=== PATIENT | female | born 1980 | race Caucasian/White ===

== ENCOUNTER → 2017-01-23 | Outpatient (REF) | payer OTHER | LOC: M LAB REF 12:29 | PROVIDERS: ATTEND Nurse Practitioner Adult Health | DX: E03.9 Hypothyroidism, unspecified (principal) ==

== ENCOUNTER → 2017-03-11 | Outpatient (REF) | payer OTHER ==
[2017-03-11 13:57] LABS: FREE T4 1.08 NG/DL (0.76-1.46)
== END ==
LOC: M LABDRAW1 11:30
PROVIDERS: ATTEND Physician Assistant Medical
DX: E03.9 Hypothyroidism, unspecified (principal)

== ENCOUNTER → 2017-06-09 | Outpatient (REF) | payer OTHER ==
[2017-06-09 12:05] LABS: FREE T4 0.99 NG/DL (0.76-1.46)
[2017-06-10 10:56] LABS: THYROID PEROXIDASE ANTIBODY 1016.2 U/ML (<60.0)
== END ==
LOC: M LABDRAW1 11:29
PROVIDERS: ATTEND Internal Medicine Endocrinology, Diabetes & Metabolism
DX: E03.9 Hypothyroidism, unspecified (principal)

== ENCOUNTER → 2017-08-13 | Outpatient (REF) | payer OTHER | LOC: M SFHCWAGY 12:46 | PROVIDERS: ATTEND Nurse Practitioner Women's Health | DX: N93.0 Postcoital and contact bleeding (principal) ==

== ENCOUNTER → 2017-09-09 | Outpatient (REF) | payer OTHER ==
[2017-09-09 16:17] LABS: FREE T4 1.02 NG/DL (0.76-1.46)
== END ==
LOC: M LABDRAW1 13:32
PROVIDERS: ATTEND Nurse Practitioner Family
DX: E03.9 Hypothyroidism, unspecified (principal); E66.09 Other obesity due to excess calories

== ENCOUNTER → 2017-09-17 | Outpatient (CLI) | payer OTHER ==
--- NOTE | 2017-09-17 14:10 | REP ---
PELVIC ULTRASOUND: Real-time sonographic evaluation of the pelvis is performed utilizing transabdominal and endovaginal technique. The patient has had a prior hysterectomy. The ovaries appear normal in size and echotexture, right ovary measuring 2.8 x 1.8 x 4.1 cm and the left ovary 4.0 x 1.5 x 2.7 cm. Normal size follicles are seen in each ovary with no evidence of adnexal mass or free fluid. Blood flow is seen in each ovary with duplex Doppler evaluation, RI right ovary 0.40 and left ovary 0.47. Urinary bladder measures 13.0 x 10.8 x 8.2 cm. IMPRESSION: Normal appearing ovaries. Status post hysterectomy. No mass or free fluid.
--- NOTE | 2017-09-17 14:15 | REPMRS ---
Patient History The patient states she had a clinical breast exam in 08/09 Patient is nulliparous. Family history of breast cancer in maternal aunt at age 40, breast cancer in maternal aunt at age 50, and breast cancer in maternal grandmother. Digital Woman Screen Mammo: September 17, 2017 - Exam #: [id number] Bilateral CC and MLO view(s) were taken. Technologist: Kenna Kirby, Technologist FINDINGS: The breast tissue is heterogeneously dense. This may lower the sensitivity of mammography. There is a moderate amount of heterogeneously dense fibroglandular tissue which is fairly symmetric. There is no interval development of dominant mass, architectural distortion, or clustered microcalcification typical of malignancy. There has been no change in the appearance of the mammogram from the prior studies. ASSESSMENT: BI-RADS/ACR category 1 mammogram. Negative. Recommendation Breast MRI of both breasts in 6 months. Annual screening Breast MRI scanniing is recommended for patient's whose lifetime risk assessment is over 20%. Routine screening mammogram of both breasts in 1 year (for women over age 40). This patient's Lifetime Breast Cancer RIsk is estimated at 25 %. This mammogram was interpreted with the aid of an FDA-approved computer-aided dectection system. Electronically Signed By: Anderson Shaikh MD 09/17/17 0610
== END ==
LOC: M WHC 12:52
PROVIDERS: ATTEND Nurse Practitioner Women's Health
DX: Z12.31 Encounter for screening mammogram for malignant neoplasm of breast (principal); R10.2 Pelvic and perineal pain; Z80.41 Family history of malignant neoplasm of ovary; Z84.81 Family history of carrier of genetic disease; Z80.3 Family history of malignant neoplasm of breast
CPT/HCPCS: 76830; 76856; G0202

== ENCOUNTER → 2017-12-02 | Outpatient (CLI) | payer OTHER ==
[2017-12-02 09:37] LABS: BASO % 0.8 % (0.0-1.0); EOS # 0.1 10^3/uL (0.0-0.50); EOS % 2.6 % (0.0-3.0); HEMATOCRIT 39.2 % (36.0-47.0); HEMOGLOBIN 13.3 g/dl (12.0-16.0); IMMATURE GRANULOCYTE % 0.4 % (0-0); LYMPH # 1.3 10^3/uL (1.5-4.5); LYMPH % 26.1 % (24.0-44.0); MEAN CORPUSCULAR HEMOGLOBIN 33.6 pg (27.0-33.0); MEAN CORPUSCULAR HGB CONC 33.9 g/dl (32.0-36.5); MONO # 0.4 10^3/uL (0.0-0.8); MONO % 7.4 % (0.0-5.0); NEUTROPHILS # 3.1 10^3/uL (1.8-7.7); NEUTROPHILS % 62.7 % (36.0-66.0); PLATELET COUNT, AUTOMATED 329 10^3/uL (150-450); RED BLOOD COUNT 3.96 10^6/uL (4.00-5.40); RED CELL DISTRIBUTION WIDTH 12.4 % (11.5-14.5)
[2017-12-02 10:02] LABS: ALBUMIN 3.8 GM/DL (3.2-5.2); ALBUMIN/GLOBULIN RATIO 1.09 (1.00-1.93); ALKALINE PHOSPHATASE 62 U/L (45-117); ALT/SGPT 38 U/L (12-78); ANION GAP 8 MEQ/L (8-16); AST/SGOT 20 U/L (7-37); BILIRUBIN,TOTAL 0.5 MG/DL (0.2-1.0); BLOOD UREA NITROGEN 28 MG/DL (7-18); CALCIUM LEVEL 8.2 MG/DL (8.5-10.1); CARBON DIOXIDE LEVEL 27 MEQ/L (21-32); CHLORIDE LEVEL 108 MEQ/L (98-107); CHOLESTEROL LEVEL 209 MG/DL (<200); CREATININE FOR GFR 1.06 MG/DL (0.55-1.02); FREE T3 2.4 PG/ML (2.2-4.0); FREE T4 1.16 NG/DL (0.76-1.46); GLOMERULAR FILTRATION RATE > 60.0 (>60); GLUCOSE, FASTING 86 MG/DL (70-105); HDL CHOLESTEROL 54 MG/DL (>40); IMMUNOGLOBULIN G 1160 MG/DL (681-1648); NON-HDL-C 155 MG/DL; POTASSIUM SERUM 4.1 MEQ/L (3.5-5.1); RHEUMATOID FACTOR QUANT < 10.0 IU/ML (0-15.0); SODIUM LEVEL 143 MEQ/L (136-145); TOTAL PROTEIN 7.3 GM/DL (6.4-8.2); TRIGLYCERIDES LEVEL 65 MG/DL (<150)
[2017-12-02 11:24] LABS: THYROID PEROXIDASE ANTIBODY 1007.6 U/ML (<60.0); TOTAL 25(OH) VITAMIN D 32.5 NG/ML (30.0-100.0)
[2017-12-02 11:26] LABS: THYROGLOBULIN ANTIBODY > 500.0 U/ML (<60.0)
[2017-12-09 14:12] LABS: ANTINUCLEAR ANTIBODIES DIRECT Negative (Negative); ARSENIC BLOOD 3 ug/L (2-23); GLUTATHIONE QT 273 ug/mL (176-323); LEAD BLOOD None Detected ug/dL (0-19); Lyme Disease IgG/IgM Antibodie <0.91 ISR (0.00-0.90); Lyme Disease IgM Ab Quantitati <0.80 index (0.00-0.79); MERCURY BLOOD None Detected ug/L (0.0-14.9); T3 REVERSE 18.8 ng/dL (9.2-24.1); TISSUE TRANSGLUTAMINASE IgA <2 U/mL (0-3); UNITSIGA FOR GLIADIN IGA 4 units (0-19); UNITSIGG FOR GLIADIN IGG 7 units (0-19)
[2017-12-09 14:12] LABS: ALUMINUM LEVEL 5 ug/L (0-9)
== END ==
LOC: M LAB 08:39
DX: F41.1 Generalized anxiety disorder (principal); E03.9 Hypothyroidism, unspecified

== ENCOUNTER → 2018-05-10 | Outpatient (CLI) | payer OTHER ==
[~2018-05-10] MED LIST: PROHANCE 279.3MG/ML 15ML VIAL (A9576) As Ordered
== END ==
LOC: M RAD 10:21
DX: R92.2 Inconclusive mammogram (principal); Z84.81 Family history of carrier of genetic disease
CPT/HCPCS: A9576

== ENCOUNTER → 2018-08-25 | Outpatient (CLI) | payer OTHER ==
[2018-08-25 17:19] LABS: EOS # 0.2 10^3/uL (0.0-0.50); EOS % 4.6 % (0.0-3.0); HEMATOCRIT 41.3 % (36.0-47.0); IMMATURE GRANULOCYTE % 0.3 % (0-3.0); LYMPH # 1.3 10^3/uL (1.5-4.5); MEAN CORPUSCULAR HEMOGLOBIN 34.7 pg (27.0-33.0); MEAN CORPUSCULAR HGB CONC 33.9 g/dl (32.0-36.5); MEAN CORPUSCULAR VOLUME 102.2 fl (80.0-96.0); MONO # 0.3 10^3/uL (0.0-0.8); MONO % 8.4 % (0.0-5.0); NEUTROPHILS % 51.7 % (36.0-66.0); PLATELET COUNT, AUTOMATED 328 10^3/uL (150-450); RED BLOOD COUNT 4.04 10^6/uL (4.00-5.40); WHITE BLOOD COUNT 3.9 10^3/uL (4.0-10.0)
[2018-08-25 17:51] LABS: ALBUMIN 3.5 GM/DL (3.2-5.2); ALBUMIN/GLOBULIN RATIO 1.03 (1.00-1.93); ALKALINE PHOSPHATASE 52 U/L (45-117); ALT/SGPT 32 U/L (12-78); AMYLASE 40 U/L (25-115); ANION GAP 8 MEQ/L (8-16); AST/SGOT 19 U/L (7-37); BILIRUBIN,TOTAL 0.5 MG/DL (0.2-1.0); BLOOD UREA NITROGEN 12 MG/DL (7-18); CALCIUM LEVEL 8.3 MG/DL (8.5-10.1); CARBON DIOXIDE LEVEL 25 MEQ/L (21-32); CHLORIDE LEVEL 109 MEQ/L (98-107); CREATININE FOR GFR 0.95 MG/DL (0.55-1.30); GLOMERULAR FILTRATION RATE > 60.0 (>60); GLUCOSE, FASTING 93 MG/DL (70-100); LIPASE 90 U/L (73-393); SODIUM LEVEL 142 MEQ/L (136-145); TOTAL PROTEIN 6.9 GM/DL (6.4-8.2)
== END ==
LOC: M WUC 11:15
DX: A09 Infectious gastroenteritis and colitis, unspecified (principal)
CPT/HCPCS: 82150

== ENCOUNTER → 2018-08-25 | Outpatient (REF) | payer OTHER, BC | LOC: M LAB REF 16:57 | DX: A09 Infectious gastroenteritis and colitis, unspecified (principal) ==

== ENCOUNTER → 2018-10-19 | Outpatient (REF) | payer OTHER, BC ==
[2018-10-19 19:01] LABS: AMYLASE 44 U/L (25-115)
[2018-10-19 19:01] LABS: LIPASE 108 U/L (73-393)
[2018-10-19 19:09] LABS: CONTROL LINE HPYORI INT CTR LINE PRESENT; H PYLORI QUALITATIVE IgG DETECTED (NEGATIVE)
== END ==
LOC: M LAB REF 18:29
DX: R10.13 Epigastric pain (principal)

== ENCOUNTER → 2018-12-08 | Outpatient (CLI) | payer OTHER, BC ==
--- NOTE | 2018-12-08 16:32 | REPMRS ---
Patient History The patient states she had a clinical breast exam in 12/11 Family history of breast cancer in maternal grandmother, breast cancer at age 40 in maternal aunt, breast cancer at age 50 in maternal aunt. Digital Woman Screen Mammo: December 08, 2018 - Exam #: [id number] Bilateral CC and MLO view(s) were taken. Technologist: Kenna Kirby, Technologist Prior study comparison: September 17, 2017, digital woman screen mammo performed at [facility]. January 26, 2015, digital mammo diagnostic bilateral, performed at [facility]. FINDINGS: The breast tissue is heterogeneously dense. This may lower the sensitivity of mammography. There is a moderate amount of heterogeneously dense fibroglandular tissue which is fairly symmetric. There is no interval development of dominant mass, architectural distortion, or clustered microcalcification typical of malignancy. There has been no change in the appearance of the mammogram from the prior studies. 3-D tomosynthesis shows no additional findings. Assessment: BI-RADS/ACR category 1 mammogram. Negative. Recommendation Breast MRI of both breasts in 6 months. Routine screening mammogram of both breasts in 1 year (for women over age 40). This patient's Lifetime Breast Cancer RIsk is estimated at 24.6 %. Annual screening Breast MRI scanniing is recommended for patient's whose lifetime risk assessment is over 20%. This mammogram was interpreted with the aid of an FDA-approved computer-aided dectection system. Electronically Signed By: Anderson Shaikh MD 12/08/18 [id number]
== END ==
LOC: M WHC 13:44
PROVIDERS: ATTEND Nurse Practitioner Women's Health
DX: Z12.31 Encounter for screening mammogram for malignant neoplasm of breast (principal); Z80.3 Family history of malignant neoplasm of breast

== ENCOUNTER 2018-12-22 11:26 | Emergency (ER) | payer OTHER, BC ==
[~2018-12-22] VITALS: Ht 165.1 cm; Wt 80.0 kg
[2018-12-22 11:27] VITALS: BP 117/70
[2018-12-22] MEDS ORDERED: TEMA7.5C (11:33)
[2018-12-22] MEDS ORDERED: VALA1TAB2 (11:33)
[2018-12-22] MEDS ORDERED: CETI10TA (11:33)
[2018-12-22] MEDS ORDERED: TOPI50TA9 (11:33)
[2018-12-22] MEDS ORDERED: ESOM40CA35 (11:33)
[2018-12-22] MEDS ORDERED: LEVO100T5 (11:33)
[2018-12-22] MEDS ORDERED: DULO1CAP3 (11:33)
[2018-12-22] MEDS ORDERED: NS 1,000 ML IV ONE (12:00)
[2018-12-22] MEDS ORDERED: KETOROLAC 30 MG/ML VIAL (J1885) IV ONE (12:00)
[2018-12-22] MEDS ORDERED: ONDANSETRON 4MG/2ML VIAL (J2405) IV ONE (12:00)
[2018-12-22 12:07] LABS: BASO % 0.7 % (0.0-1.0); EOS # 0.2 10^3/uL (0.0-0.50); EOS % 3.6 % (0.0-3.0); HEMATOCRIT 41.9 % (36.0-47.0); HEMOGLOBIN 14.5 g/dl (12.0-15.5); LYMPH # 1.3 10^3/uL (1.5-4.5); LYMPH % 28.7 % (24.0-44.0); MEAN CORPUSCULAR HEMOGLOBIN 34.5 pg (27.0-33.0); MEAN CORPUSCULAR HGB CONC 34.6 g/dl (32.0-36.5); MEAN CORPUSCULAR VOLUME 99.8 fl (80.0-96.0); MONO # 0.4 10^3/uL (0.0-0.8); MONO % 8.9 % (0.0-5.0); NEUTROPHILS # 2.5 10^3/uL (1.8-7.7); NEUTROPHILS % 57.9 % (36.0-66.0); PLATELET COUNT, AUTOMATED 308 10^3/uL (150-450); WHITE BLOOD COUNT 4.4 10^3/uL (4.0-10.0)
[2018-12-22 12:30] LABS: ALBUMIN 3.8 GM/DL (3.2-5.2); ALT/SGPT 25 U/L (12-78); AMYLASE 38 U/L (25-115); BILIRUBIN,DIRECT 0.2 MG/DL (0.0-0.2); BILIRUBIN,TOTAL 0.6 MG/DL (0.2-1.0); BLOOD UREA NITROGEN 15 MG/DL (7-18); CALCIUM LEVEL 8.2 MG/DL (8.5-10.1); CARBON DIOXIDE LEVEL 22 MEQ/L (21-32); CHLORIDE LEVEL 109 MEQ/L (98-107); CREATININE FOR GFR 0.94 MG/DL (0.55-1.30); GLOMERULAR FILTRATION RATE > 60.0 (>60); GLUCOSE, FASTING 98 MG/DL (70-100); LIPASE 68 U/L (73-393); POTASSIUM SERUM 3.8 MEQ/L (3.5-5.1); SODIUM LEVEL 139 MEQ/L (136-145)
[2018-12-22] MEDS ORDERED: ISOVUE-370 76% 100ML VIAL (Q9967) As Ordered ONE (12:38)
[2018-12-22] MEDS ORDERED: MACR100C43 PO (13:12)
--- NOTE | 2018-12-22 13:12 | REP ---
Clinical: Acute right lower quadrant pain. Technique: Axial contrast enhanced images from the lung bases to the pubic symphysis with coronal and sagittal re-formations using 100 ml Isovue 370 intravenous contrast material. Findings: Irregular rim-enhancing focus in the right adnexa with surrounding fluid (axial images 95-112) most compatible with a ruptured ovarian cyst and likely related to the patient's symptoms. The patient is noted to be status post hysterectomy. The liver, spleen, pancreas, gallbladder, bilateral adrenal glands and kidneys are normal. The enteric system demonstrates moderate fecal stasis without obstruction or acute inflammatory process. Normal terminal ileum and appendix are identified in the right lower quadrant. Pelvis again demonstrates normal bladder with evidence of prior hysterectomy and suspected ruptured right ovarian cyst. No free air. No adenopathy. Abdominal aorta and vasculature normal. Musculoskeletal structures are intact. Lung bases are clear. Impression: 1. Right lower quadrant pain likely related to ruptured ovarian cyst as described above. 2. Normal appendix. 3. No further acute abdominopelvic pathology appreciated. Electronically Signed by Puneet Shine MD 12/22/2018 01:04 P
== END 2018-12-22 13:29 | disposition home or self-care (01) ==
LOC: M ED 11:26
DX: N83.201 Unspecified ovarian cyst, right side (principal); N30.00 Acute cystitis without hematuria; R11.0 Nausea; E06.3 Autoimmune thyroiditis; F41.9 Anxiety disorder, unspecified; F32.9 Major depressive disorder, single episode, unspecified; Z86.19 Personal history of other infectious and parasitic diseases; Z87.891 Personal history of nicotine dependence; Z79.899 Other long term (current) drug therapy
CPT/HCPCS: 36415; 74177; 80048; 80076; 81001; 82150; 83690; 85025; 96374; 96375; 99284; J1885; J2405; Q9967

== ENCOUNTER → 2019-01-21 | Outpatient (CLI) | payer OTHER, BC ==
[~2019-01-21] MED LIST changes: +CETI10TA; +DULO1CAP3; +ESOM40CA35; +LEVO100T5; +MACR100C43 PO; -PROHANCE 279.3MG/ML 15ML VIAL (A9576) As Ordered; +TEMA7.5C; +TOPI50TA9; +VALA1TAB2
--- NOTE | 2019-01-21 09:42 | REP ---
Clinical: Epigastric abdominal pain. Technique: Barrera scale ultrasound using curved array transducer. Findings: The liver, spleen and pancreas are normal in contour, size, and echogenicity without focal hepatic, splenic or pancreatic lesions identified. Spleen measures 8.1 x 4.1 x 8.8 cm. The gallbladder is normal without gallstones, wall thickening or pericholecystic fluid. No biliary ductal dilatation is appreciated, and the common bile duct measures 4.0 mm diameter. The bilateral kidneys are normal in reniform shape and echogenicity without hydronephrosis. Right kidney measures 10.3 x 5.7 x 4.4 cm. Left kidney measures 10.3 x 4.7 x 7.1 cm. Abdominal aorta appears normal and measures 1.8 cm maximal diameter. No ascites. Impression: Normal complete abdominal ultrasound. Electronically Signed by Puneet Shine MD 01/21/2019 09:34 A
== END ==
LOC: M RAD 08:23
PROVIDERS: ATTEND Internal Medicine Gastroenterology
DX: R10.13 Epigastric pain (principal)

== ENCOUNTER → 2019-02-01 | Outpatient (CLI) | payer OTHER, BC ==
[~2019-02-01] MED LIST changes: -CETI10TA; +CETI10TA PO; -DULO1CAP3; +DULO1CAP3 PO; -ESOM40CA35; +ESOM40CA35 PO; -LEVO100T5; +LEVO100T5 PO; -TEMA7.5C; +TEMA7.5C PO; -TOPI50TA9; +TOPI50TA9 PO; -VALA1TAB2; +VALA1TAB2 PO
--- NOTE | 2019-02-01 14:54 | REP ---
RIGHT KNEE, FIVE VIEWS: HISTORY: Anterior pain. There is no acute fracture or dislocation. The joint spaces are normal in appearance. IMPRESSION: There is no acute fracture or dislocation. Electronically Signed by Van Hawthorne MD 02/01/2019 02:57 P
== END ==
LOC: M WUC 13:47
PROVIDERS: ATTEND Physician Assistant
DX: M22.2X1 Patellofemoral disorders, right knee (principal)

== ENCOUNTER → 2019-02-14 | Outpatient (CLI) | payer OTHER, BC ==
--- NOTE | 2019-02-14 10:14 | REP ---
Pelvic sonography: History: Ovarian cyst. Comparison CT study December 22 2018. Findings: The uterus is surgically absent. Transabdominal and transvaginal scanning demonstrates smooth bladder reed. There is a 1.6 cm involuting follicle cyst in the left ovary. Left ovarian dimensions are 3.9 x 2.0 x 3.7 cm. Right ovary has a normal appearance with dimensions of 2.1 x 1.3 x 3.3 cm. Doppler flow is normal in both ovaries. Resistive indices are measured at 0.48 on the right and 0.43 on the left. Impression: Normal pelvic sonography status post hysterectomy. No significant ovarian cyst seen on either side. No free fluid. Electronically Signed by Baldo Shaikh MD 02/14/2019 10:06 A
== END ==
LOC: M WHC 09:01
PROVIDERS: ATTEND Nurse Practitioner Women's Health
DX: Z87.42 Personal history of other diseases of the female genital tract (principal); Z90.79 Acquired absence of other genital organ(s)

== ENCOUNTER 2019-02-18 13:05 | Day surgery (SDC) | payer OTHER, BC ==
[~2019-02-18] VITALS: Ht 165.1 cm; Wt 78.9 kg
[~2019-02-18 13:05] MED LIST changes: +NS 1,000 ML IV ONE
[2019-02-18] MEDS ORDERED: PROPOFOL 200 MG/20 ML VIAL As Ordered ONE (13:49)
[2019-02-18] MEDS ORDERED: LIDOCAINE 2% INJ 100 MG/5 ML SDV (FOR ANES.) As Ordered ONE (13:49)
[2019-02-18] MEDS ORDERED: fentaNYL 100 MCG/2 ML INJECTION (J3010) As Ordered ONE (13:51)
--- NOTE | 2019-02-18 14:58 | ROOR ---
Patient Name: Ryan Douglas Procedure Date: 02/18/2019 2:13 PM Date of : 1980 Age: 38 Room: [facility] Gender: Female Note Status: Finalized Procedure: Upper GI endoscopy Indications: Epigastric abdominal pain, Heartburn, Suspected gastro-esophageal reflux disease Providers: Sonny Queen MD Referring MD: Aditi Coon NP Requesting Provider: Medicines: Monitored Anesthesia Care Complications: No immediate complications. Procedure: Pre-Anesthesia Assessment: - Prior to the procedure, a History and Physical was performed, and patient medications and allergies were reviewed. The patient is competent. The risks and benefits of the procedure and the sedation options and risks were discussed with the patient. All questions were answered and informed consent was obtained. Patient identification and proposed procedure were verified by the physician, the nurse and the anesthesiologist in the procedure room. Mental Status Examination: alert and oriented. Airway Examination: normal oropharyngeal airway and neck mobility. Respiratory Examination: clear to auscultation. CV Examination: normal. Prophylactic Antibiotics: The patient does not require prophylactic antibiotics. Prior Anticoagulants: The patient has taken no previous anticoagulant or antiplatelet agents. ASA Grade Assessment: II - A patient with mild systemic disease. After reviewing the risks and benefits, the patient was deemed in satisfactory condition to undergo the procedure. The anesthesia plan was to use monitored anesthesia care (MAC). Immediately prior to administration of medications, the patient was re-assessed for adequacy to receive sedatives. The heart rate, respiratory rate, oxygen saturations, blood pressure, adequacy of pulmonary ventilation, and response to care were monitored throughout the procedure. The physical status of the patient was re-assessed after the procedure. The Endoscope was introduced through the mouth, and advanced to the second part of duodenum. The upper GI endoscopy was accomplished without difficulty. The patient tolerated the procedure well. Findings: The examined esophagus was normal. The Z-line was regular and was found 41 cm from the incisors. Diffuse mild inflammation characterized by erythema and granularity was found in the gastric body and in the gastric antrum. Biopsies were taken with a cold forceps for Helicobacter pylori testing. Verification of patient identification for the specimen was done by the physician and nurse using the patient's name, date and medical record number. Estimated blood loss was minimal. The duodenal bulb and second portion of the duodenum were normal. Biopsies for histology were taken with a cold forceps for evaluation of celiac disease. Impression: - Normal esophagus. - Z-line regular, 41 cm from the incisors. - Gastritis. Biopsied. - Normal duodenal bulb and second portion of the duodenum. Biopsied. Recommendation: - Patient has a contact number available for emergencies. The signs and symptoms of potential delayed complications were discussed with the patient. Return to normal activities tomorrow. Written discharge instructions were provided to the patient. - Resume previous diet. - Follow an antireflux regimen. - Await pathology results. - Based on the biopsy results you will receive a phone call from GI clinic in 2-3 weeks to review the pathology results AND/OR your results will be faxed to your Primary care physician. - Return to primary care physician. Sonny Queen MD Sonny Queen MD 02/18/2019 2:58:25 PM Electronically signed by Sonny Queen MD Number of Addenda: 0 Note Initiated On: 02/18/2019 2:13 PM Estimated Blood Loss: Estimated blood loss was minimal.
[2019-02-18 15:14] VITALS: BP 131/76
== END 2019-02-18 15:17 | disposition home or self-care (01) ==
LOC: M OPP 13:05
PROVIDERS: ATTEND Internal Medicine Gastroenterology
DX: K29.70 Gastritis, unspecified, without bleeding (principal); R10.13 Epigastric pain; R12 Heartburn
CPT/HCPCS: 43239; 88305; J3010

== ENCOUNTER → 2019-06-08 | Outpatient (CLI) | payer OTHER, BC ==
[~2019-06-08] MED LIST changes: -DULO1CAP3 PO; +DULO1CAP6 PO; -NS 1,000 ML IV ONE; +PROHANCE 279.3MG/ML 15ML VIAL (A9576) As Ordered ONE; +PROHANCE 279.3MG/ML 5ML VIAL (A9576) As Ordered ONE
--- NOTE | 2019-06-08 13:22 | REP ---
MRI BILATERAL BREASTS WITH AND WITHOUT CONTRAST: Family history of breast cancer in maternal grandmother and two maternal aunts. [facility] lifetime risk of breast cancer 24.6%. Correlation prior mammogram 12/08/2018 and breast MRI 05/10/2018. Bilateral breast MRI performed in the axial, coronal and sagittal planes prior to and following the intravenous administration of 16 mL ProHance. Images are evaluated on the TeamDynam[employer] software, including axial T1 fat sat, dynamic post gadolinium images, subtraction images, CAD images, color overlay and MIP reconstruction images. There is moderate diffuse fibroglandular tissue bilaterally. There is mild background parenchymal enhancement. I do not see cystic change in either breast. No axillary adenopathy is seen bilaterally. There are no suspicious morphologic abnormality. There is no suspicious enhancing mass. There is no change since the prior exam. IMPRESSION: BIRADS category 1 negative bilateral breast MRI with no change since the prior study. Annual supplemental screening MRI of the breast is recommended for patients with elevated lifetime risk of breast cancer 20% or greater, in addition to routine annual screening mammography. Electronically Signed by Kaiden Barrera MD 06/11/2019 06:27 P
== END ==
LOC: M RAD 09:31
PROVIDERS: ATTEND Nurse Practitioner Women's Health
DX: R92.8 Other abnormal and inconclusive findings on diagnostic imaging of breast (principal)

== ENCOUNTER 2019-10-06 10:15 | Emergency (ER) | payer OTHER, BC ==
[~2019-10-06] VITALS: Ht 165.1 cm; Wt 85.6 kg
[~2019-10-06 10:15] MED LIST changes: -PROHANCE 279.3MG/ML 15ML VIAL (A9576) As Ordered ONE; -PROHANCE 279.3MG/ML 5ML VIAL (A9576) As Ordered ONE
[2019-10-06] MEDS ORDERED: KETOROLAC 30 MG/ML VIAL (J1885) IV ONE (11:00)
[2019-10-06 11:31] LABS: BASO # 0.1 10^3/uL (0.0-0.2); BASO % 0.9 % (0.0-1.0); EOS # 0.2 10^3/uL (0.0-0.5); HEMATOCRIT 42.9 % (36.0-47.0); HEMOGLOBIN 14.5 g/dl (12.0-15.5); LYMPH # 1.7 10^3/uL (1.5-5.0); LYMPH % 29.5 % (24.0-44.0); MEAN CORPUSCULAR HEMOGLOBIN 32.6 pg (27.0-33.0); MEAN CORPUSCULAR HGB CONC 33.8 g/dl (32.0-36.5); MEAN CORPUSCULAR VOLUME 96.4 fl (80.0-96.0); MONO # 0.4 10^3/uL (0.0-0.8); MONO % 7.8 % (0.0-5.0); NEUTROPHILS # 3.3 10^3/uL (1.5-8.5); NEUTROPHILS % 58.4 % (36.0-66.0); PLATELET COUNT, AUTOMATED 329 10^3/uL (150-450); RED BLOOD COUNT 4.45 10^6/uL (4.00-5.40); WHITE BLOOD COUNT 5.6 10^3/uL (4.0-10.0)
[2019-10-06 12:13] LABS: ALT/SGPT 34 U/L (12-78); BILIRUBIN,DIRECT < 0.1 MG/DL (0.0-0.2); BILIRUBIN,TOTAL 0.4 MG/DL (0.2-1.0); BLOOD UREA NITROGEN 14 MG/DL (7-18); CALCIUM LEVEL 9.3 MG/DL (8.5-10.1); CARBON DIOXIDE LEVEL 26 MEQ/L (21-32); CHLORIDE LEVEL 107 MEQ/L (98-107); CREATININE FOR GFR 0.98 MG/DL (0.55-1.30); GLOMERULAR FILTRATION RATE > 60.0 (>58); GLUCOSE, FASTING 92 MG/DL (70-100); LIPASE 54 U/L (73-393); POTASSIUM SERUM 4.2 MEQ/L (3.5-5.1); SODIUM LEVEL 140 MEQ/L (136-145); TOTAL PROTEIN 7.7 GM/DL (6.4-8.2)
[2019-10-06] MEDS ORDERED: ISOVUE-370 76% 100ML VIAL (Q9967) As Ordered ONE (12:17)
--- NOTE | 2019-10-06 13:00 | REP ---
CT abdomen and pelvis with IV but without oral contrast: History: Right lower quadrant pain. Comparison CT study December 22, 2018. CT contrast dose: 100 mL of intravenous Isovue 370. CT findings: Preliminary digital raw stock machine loader radiograph demonstrates an unremarkable bowel gas pattern. The lung bases are clear on axial CT images. The liver and the spleen are normal in size, homogeneous in texture. Pancreas is unremarkable. No abnormalities noted in the gallbladder. No adrenal lesion is seen. The kidneys enhance symmetrically. No mass or hydronephrosis is seen. No calculus or cyst is observed. No retroperitoneal mass or adenopathy is observed. Small and large intestinal bowel loops are normal in the upper abdomen. Pelvic CT images show a normal appendix in the right lower quadrant. There is a very small amount of cul-de-sac fluid. Small cystic areas are seen in the ovaries bilaterally. No significant ovarian cyst is seen on either side. Uterus is surgically absent. The urinary bladder is empty at the time of scanning. There is no evidence of diverticulosis or diverticulitis. No abdominal wall defect is appreciated. Impression: Patient status post hysterectomy. Small amount of cul-de-sac fluid. Small cystic areas right ovary. Normal appendix. Otherwise unremarkable. Electronically Signed by Baldo Shaikh MD 10/06/2019 02:20 P
--- NOTE | 2019-10-06 14:55 | REP ---
PELVIC SONOGRAPHY: HISTORY: Right ovarian cyst. Rule out torsion. COMPARISON: CT study October 06, 2019. SONOGRAPHIC FINDINGS: Transabdominal and transvaginal scanning are performed. The uterus is surgically absent. There is a moderate amount of cul-de-sac fluid. Visualized bladder reed are smooth. Right ovarian dimensions are 4.5 x 2.6 x 4.9 cm. No significant ovarian cyst is seen. There is a 1.9 cm slightly hypoechoic area in the right ovary which may be a tiny hemorrhagic follicle. Normal Doppler flow is seen in the right ovary with resistive index 0.67. The left ovary measures 2.8 x 1.6 x 2.5 cm. Doppler flow is normal in the left ovary with resistive index 0.42. No left ovarian cyst is seen. IMPRESSION: Moderate amount of cul-de-sac fluid. Normal Doppler flow to both ovaries. No significant cyst seen. Electronically Signed by Baldo Shaikh MD 10/06/2019 04:06 P
[2019-10-06] MEDS ORDERED: KETO10TAB PO (14:56)
[2019-10-06 15:15] VITALS: BP 118/66
== END 2019-10-06 15:18 | disposition home or self-care (01) ==
LOC: M ED 10:15
DX: N83.202 Unspecified ovarian cyst, left side (principal); R51 Headache; E06.3 Autoimmune thyroiditis; F41.9 Anxiety disorder, unspecified; F32.9 Major depressive disorder, single episode, unspecified; Z79.899 Other long term (current) drug therapy
CPT/HCPCS: 74177; 76830; 76856; 80048; 80076; 81001; 83690; 85025; 93976; 96374; 99284; J1885; Q9967

== ENCOUNTER → 2020-01-09 | Outpatient (CLI) | payer OTHER, BC ==
[~2020-01-09] MED LIST changes: +KETO10TAB PO; -VALA1TAB2 PO; +VALA1TAB5 PO
--- NOTE | 2020-01-09 12:30 | REPMRS ---
Patient History The patient states she has not had a clinical breast exam in over a year. Family history of breast cancer in maternal grandmother, breast cancer at age 40 in maternal aunt, breast cancer at age 50 in maternal aunt. Digital Woman Screen Mammo: January 09, 2020 - Exam #: [id number] Bilateral CC and MLO view(s) were taken. Technologist: Jennifer Fong, Technologist Prior study comparison: December 08, 2018, [facility] 17, 2017, [facility] 26, 2015, digital mammo diagnostic bilateral, performed at [facility]. FINDINGS: The breast tissue is heterogeneously dense. This may lower the sensitivity of mammography. There is a moderate amount of heterogeneously dense fibroglandular tissue which is fairly symmetric. There is no interval development of dominant mass, architectural distortion, or grouped microcalcification typical of malignancy. There has been no change in the appearance of the mammogram from the prior studies. 3-D tomosynthesis shows no additional findings. Assessment: BI-RADS/ACR category 1 mammogram. Negative Mammogram. Recommendation Breast MRI of both breasts in 6 months. Routine screening mammogram of both breasts in 1 year (for women over age 40). This patient's Lifetime Breast Cancer RIsk is estimated at 24.4 %. Annual screening Breast MRI scanniing is recommended for patient's whose lifetime risk assessment is over 20%. This mammogram was interpreted with the aid of an FDA-approved computer-aided dectection system. Electronically Signed By: Anderson Shaikh MD 01/09/20 [id number]
== END ==
LOC: M WHC 11:06
PROVIDERS: ATTEND Nurse Practitioner Women's Health
DX: Z12.31 Encounter for screening mammogram for malignant neoplasm of breast (principal)

== ENCOUNTER → 2020-01-09 | Outpatient (CLI) | payer OTHER, BC ==
--- NOTE | 2020-01-09 18:37 | REP ---
Clinical: Lateral foot pain Technique: AP, lateral, bilateral oblique views left foot . Findings: The osseous structures and joint spaces are intact and normal. There is no evidence for acute fracture or dislocation. Surrounding soft tissues are unremarkable. No subcutaneous emphysema or radiodense foreign body. Impression: Normal left foot series . No acute fracture or dislocation. Electronically Signed by Puneet Shine MD 01/09/2020 06:29 P
== END ==
LOC: M WUC 17:39
PROVIDERS: ATTEND Physician Assistant
DX: M79.672 Pain in left foot (principal)

== ENCOUNTER 2020-06-08 06:15 | Day surgery (SDC) | payer OTHER, BC ==
[~2020-06-08] VITALS: Ht 165.1 cm; Wt 79.1 kg
[~2020-06-08 06:15] MED LIST changes: +SYNT112T2 PO
[2020-06-08 06:52] LABS: HEMATOCRIT 41.6 % (36.0-47.0); HEMOGLOBIN 13.9 g/dl (12.0-15.5); MEAN CORPUSCULAR HEMOGLOBIN 32.6 pg (27.0-33.0); MEAN CORPUSCULAR HGB CONC 33.4 g/dl (32.0-36.5); MEAN CORPUSCULAR VOLUME 97.7 fl (80.0-96.0); PLATELET COUNT, AUTOMATED 309 10^3/uL (150-450); RED BLOOD COUNT 4.26 10^6/uL (4.00-5.40); WHITE BLOOD COUNT 4.9 10^3/uL (4.0-10.0)
[2020-06-08] MEDS ORDERED: LR 1,000 ML IV ONE (07:00)
[2020-06-08] MEDS ORDERED: SUGAMMADEX SODIUM 500 MG/5 ML VIAL (BRIDION) As Ordered ONE (07:15)
[2020-06-08] MEDS ORDERED: KETOROLAC 60MG 2ML VIAL As Ordered ONE (07:15)
[2020-06-08] MEDS ORDERED: ROCURONIUM BROMIDE 50 MG/5 ML VIAL As Ordered ONE (07:15)
[2020-06-08] MEDS ORDERED: ONDANSETRON 4MG/2ML VIAL As Ordered ONE (07:15)
[2020-06-08] MEDS ORDERED: dexameTHASONE 4 MG/ML 1ML VIAL (J1100 PER 1MG) As Ordered ONE (07:15)
[2020-06-08] MEDS ORDERED: MIDAZOLAM INJ 2MG/2ML VIAL (J2250 PER 1MG) As Ordered ONE (07:15)
[2020-06-08] MEDS ORDERED: propofoL 200 MG/20 ML VIAL As Ordered ONE (07:15)
[2020-06-08] MEDS ORDERED: LIDOCAINE 2% 100MG/5ML SDV (FOR ANES.) As Ordered ONE (07:15)
[2020-06-08] MEDS ORDERED: fentaNYL 100 MCG/2 ML INJECTION (J3010) As Ordered ONE (07:15)
[2020-06-08] MEDS ORDERED: METHYLENE BLUE 0.5% (5MG/ML) 10 ML AMP (PROVAYBLUE) As Ordered ONE (07:21)
[2020-06-08] MEDS ORDERED: BUPIVACAINE HCL 0.25% 10ML VIAL As Ordered ONE (07:21)
[2020-06-08] MEDS ORDERED: ONDANSETRON 4MG/2ML VIAL IV PRN (09:30)
[2020-06-08] MEDS ORDERED: LR 1,000 ML IV SCH ×2 (09:30)
[2020-06-08] MEDS ORDERED: PERCOCET 5MG/325MG TAB PO PRN (09:30)
[2020-06-08] MEDS ORDERED: fentaNYL 100 MCG/2 ML INJECTION (J3010) IV PRN (09:30)
[2020-06-08] MEDS ORDERED: OXYC1TAB23 PO (09:38)
[2020-06-08] MEDS ORDERED: IBUP-1022 PO (09:39)
[2020-06-08] MEDS: oxyCODONE 5MG TAB PO PRN ×2 (09:41→10:29)
[2020-06-08] MEDS: HYDROMORPHONE HCL 0.5 MG/ 0.5 ML SYRINGE (J1170 PER 1) IV PRN ×2 (09:50→09:57)
[2020-06-08 12:00] VITALS: BP 120/76
--- NOTE | 2020-09-27 22:48 | ROOPDOC ---
[facility] Report Of Operation Report of Operation DATE OF PROCEDURE: 09/27/20 PREPROCEDURE DIAGNOSES: recurrent ovarian cysts, pelvic pain POSTPROCEDURE DIAGNOSES: same. PROCEDURE: Laparoscopic bilateral salpingo-oophorectomy. SURGEON: Yanira Min MD ANESTHESIA: Gen. endotracheal anesthesia. ESTIMATED BLOOD LOSS: Approximately 20 mL. COMPLICATIONS: None. FINDINGS:surgically absent uterus, bilateral small ovarian cysts present. PROCEDURE NOTE: Patient was taken to the operating room where general endotracheal anesthesia induced. She was prepped draped sterile fashion in the dorsal lithotomy position. A sponge stick was placed in the vagina. The bladder was emptied with a catheter. A periumbilical incision was made with the scalpel. A Veress needle was placed through this incision while tenting up on the skin of the abdomen.. Intra-abdominal location of the Veress needle was assessed with use of a saline filled syringe. A pneumoperitoneum was created. The Veress needle was removed. A 5 mm trocar using the Visiport was inserted through this incision. A 5 and 8 mm suprapubic port was placed under direct visualization without difficulty. A 5 mm scope with camera used to visualize the abdomen and pelvis. The patient's placed in Trendelenburg position. A grasping instrument was used to elevate each fallopian tube. The IP ligaments were coagulated and incised with Ligasure. Broad ligament attachments to the ovaries were coagulated and incised. Both ovaries and tubes were placed in an endocatch bag and removed through the umbilical port. All instruments were removed. The pneumoperitoneum was released. THe fascia of the umbilical port was closed with O-Vicryl suture. The skin was closed with 4-0 Monocryl subcuticular sutures. Sponge, instrument and needle counts were correct. YANIRA MIN MD Sep 27, 2020 22:48
== END 2020-06-08 12:16 | disposition home or self-care (01) ==
LOC: M SDC 06:15
PROVIDERS: ATTEND Specialist
DX: N83.10 Corpus luteum cyst of ovary, unspecified side (principal); N83.00 Follicular cyst of ovary, unspecified side; E03.9 Hypothyroidism, unspecified; G43.909 Migraine, unspecified, not intractable, without status migrainosus; F41.9 Anxiety disorder, unspecified; Z79.899 Other long term (current) drug therapy
CPT/HCPCS: 36415; 58661; 85027; 88307; J1100; J1170; J1885; J2250; J2405; J3010

== ENCOUNTER → 2020-11-26 | Outpatient (REF) | payer OTHER, BC ==
[~2020-11-26] MED LIST changes: +IBUP-1022 PO; +OXYC1TAB23 PO
[2020-11-26 17:52] LABS: HEMATOCRIT 42.2 % (36.0-47.0)
[2020-11-26 18:26] LABS: C REACTIVE PROTEIN QUANTITATIV < 0.30 MG/DL (0.00-0.30); FERRITIN 170 NG/ML (8-252); IRON (FE) 83 UG/DL (50-170); PERCENT SATURATION 25.9 % (13.2-45.0); RHEUMATOID FACTOR QUANT < 10.0 IU/ML (<15.0); TOTAL IRON BINDING CAPACITY 321 UG/DL (250-450)
[2020-11-26 18:35] LABS: VITAMIN B12 LEVEL 494 PG/ML (247-911)
[2020-11-26 18:46] LABS: HEPATITIS B SURFACE ANTIGEN NEGATIVE (NEGATIVE)
[2020-11-26 19:12] LABS: HEPATITIS C VIRUS ABY INDEX 0.1 INDEX (<0.8)
[2020-11-26 19:13] LABS: HEPATITIS B CORE ANTIBODY IGM NEGATIVE (NEGATIVE)
[2020-11-26 19:15] LABS: HEPATITIS A ANTIBODY IGM NEGATIVE (NEGATIVE)
[2020-11-29 00:08] LABS: ANTINUCLEAR ANTIBODIES DIRECT Negative (Negative); CYCLIC CITRULLINATED PEPTIDE 5 units (0-19)
== END ==
LOC: M LAB REF 16:20
PROVIDERS: ATTEND Nurse Practitioner Adult Health
DX: M25.50 Pain in unspecified joint (principal); R79.89 Other specified abnormal findings of blood chemistry

== ENCOUNTER → 2020-12-14 | Outpatient (CLI) | payer OTHER, BC ==
--- NOTE | 2020-12-14 16:41 | REPPI ---
INDICATION: SACROILIAC PAIN. COMPARISON: Comparison CT imaging October 06, 2019.. TECHNIQUE: Three views. FINDINGS: Sacroiliac joints are patent. There is no evidence of erosive change or ankylosis. There is minimal spurring. Bony sacrum is intact. IMPRESSION: No acute abnormality. <Electronically signed by Anderson Shaikh > 12/14/20 [id number]
== END ==
LOC: M PLAIMG 10:33
PROVIDERS: ATTEND Internal Medicine
DX: M53.3 Sacrococcygeal disorders, not elsewhere classified (principal)

== ENCOUNTER → 2020-12-14 | Outpatient (REF) | payer OTHER, BC ==
[2020-12-14 11:30] LABS: ALBUMIN 3.9 GM/DL (3.2-5.2); ALT/SGPT 39 U/L (12-78); BILIRUBIN,TOTAL 0.4 MG/DL (0.2-1.0); BLOOD UREA NITROGEN 30 MG/DL (7-18); CALCIUM LEVEL 9.4 MG/DL (8.5-10.1); CARBON DIOXIDE LEVEL 28 MEQ/L (21-32); CHLORIDE LEVEL 104 MEQ/L (98-107); COMPLEMENT C3 115 MG/DL (90-180); COMPLEMENT C4 24 MG/DL (10-40); CPK CREATINE PHOSPHOKINASE 52 U/L (26-192); CREATININE FOR GFR 1.12 MG/DL (0.55-1.30); GLOMERULAR FILTRATION RATE 57.1 (>58); GLUCOSE, FASTING 94 MG/DL (70-100); POTASSIUM SERUM 3.9 MEQ/L (3.5-5.1); SODIUM LEVEL 139 MEQ/L (136-145); TOTAL PROTEIN 7.3 GM/DL (6.4-8.2)
[2020-12-14 11:38] LABS: THYROID PEROXIDASE ANTIBODY > 1300.0 U/ML (<60.0)
[2020-12-19 12:26] LABS: ALBUMIN 4.41 GM/DL (3.29-5.55); ALBUMIN % 60.4 % (55.8-66.1); ALPHA-1-GLOBULINS 0.22 GM/DL (0.17-0.41); ALPHA-2-GLOBULINS % 9.6 % (7.1-11.8); BETA-1-GLOBULINS 0.44 GM/DL (0.28-0.60); BETA-2-GLOBULINS 0.37 GM/DL (0.19-0.55); BETA-2-GLOBULINS % 5.1 % (3.2-6.5); GAMMA GLOBULIN % 15.9 % (11.1-18.8); GAMMA GLOBULINS 1.16 GM/DL (0.65-1.58)
[2020-12-19 16:11] LABS: ANGIOTENSIN 1 CONVERTING ENZYM 42 U/L (14-82); ANTI-MITOCHONDRIAL ANTIBODY <20.0 Units (0.0-20.0); ANTI-SMOOTH MUSCLE ANTIBODY 5 Units (0-19); CERULOPLASMIN 23.4 mg/dL (19.0-39.0); HLA-B27 Negative (.); IgG P18 AB Absent (.); IgG P23 AB Absent (.); IgG P28 AB Absent (.); IgG P30 AB Absent (.); IgG P39 AB Absent (.); IgG P41 AB Present (.); IgG P45 AB Absent (.); IgG P66 AB Absent (.); IgG P93 AB Absent (.); IgM P23 AB Absent (.); IgM P39 AB Present (.); IgM P41 AB Absent (.); LYME IgG WB INTERPRETATION Negative (.); LYME IgM WB INTERPRETATION Negative (.); SSA SJOGRENS A <0.2 AI (0.0-0.9); SSB SJOGRENS B <0.2 AI (0.0-0.9)
== END ==
LOC: M SFHCRHEU 10:11
PROVIDERS: ATTEND Internal Medicine
DX: M25.50 Pain in unspecified joint (principal); M53.3 Sacrococcygeal disorders, not elsewhere classified; R79.89 Other specified abnormal findings of blood chemistry; E06.3 Autoimmune thyroiditis

== ENCOUNTER → 2020-12-24 | Outpatient (CLI) | payer OTHER, BC ==
--- NOTE | 2020-12-24 12:49 | REP ---
INDICATION: SACROILIAC PAIN. COMPARISON: Comparison radiographs 14 December 2020. TECHNIQUE: Sagittal, axial, and oblique coronal images parallel to the sacrum are acquired. T1 and T2 weighted scans are included with without fat saturation.. FINDINGS: The lumbosacral thecal sac is unremarkable. There is broad-based central disc bulging at L5-S1 contacting the ventral margin of the thecal sac. No nerve root compression is seen. There is facet hypertrophy bilaterally at L5-S1. The sacroiliac joints show no evidence of edema, ankylosis, or inflammation. No fluid signal is seen. Presacral and retro sacral soft tissues are unremarkable. No pelvic mass or adenopathy is seen. The uterus is surgically absent. IMPRESSION: Normal MRI study of the SI joints and sacrum. <Electronically signed by Anderson Shaikh > 12/24/20 1972
== END ==
LOC: M RAD 11:04
PROVIDERS: ATTEND Internal Medicine
DX: M53.3 Sacrococcygeal disorders, not elsewhere classified (principal)

== ENCOUNTER → 2021-03-04 | Outpatient (CLI) | payer OTHER, BC ==
[~2021-03-04] MED LIST changes: +BUPIVACAINE HCL 0.25% 10ML VIAL As Ordered ONE; +ISOVUE-300 61% 50ML VIAL As Ordered ONE; +LIDOCAINE 1% MDV 20ML VIAL As Ordered ONE; +TRIAMCINOLONE ACETONIDE SUSP 40 MG/ML VIAL (J3301) As Ordered ONE
--- NOTE | 2021-03-04 17:23 | REP ---
INDICATION: ADHESIVE CAPSULITIS OF LEFT SHOULDER. COMPARISON: None. TECHNIQUE: The procedure was performed under the direct supervision of Dr. Barrera. The benefits and risks including but not limited to pain infection bleeding and anaphylaxis were explained to the patient and informed consent was obtained. The left glenohumeral joint space was localized using fluoroscopic guidance. The skin was prepped and draped in a sterile fashion. 1% lidocaine was used as a local anesthetic. Using fluoroscopic guidance a 25 gauge needle was inserted and advanced into the joint. 1 cc of Isovue-300 was injected to verify placement. 7 cc of a solution containing 3 cc of 1% lidocaine, 3 cc of 0.25% bupivacaine and 1 cc of Kenalog 40 mg was injected. The needle was then removed. The patient tolerated the procedure well and there were no immediate complications. Less than 6 seconds of fluoroscopy time was utilized for this procedure. FINDINGS: None IMPRESSION: Fluoro guidance for left shoulder injection. <Electronically signed by Vic Wan > 03/04/21 [id number] <Electronically signed by Kaiden Barrera > 03/04/21 1743
== END ==
LOC: M RADPRO 11:17
DX: M75.02 Adhesive capsulitis of left shoulder (principal)
CPT/HCPCS: 20610; 77002; J3301; Q9967

== ENCOUNTER → 2021-07-24 | Outpatient (REF) | payer OTHER, BC ==
[~2021-07-24] MED LIST changes: -BUPIVACAINE HCL 0.25% 10ML VIAL As Ordered ONE; -ISOVUE-300 61% 50ML VIAL As Ordered ONE; -LIDOCAINE 1% MDV 20ML VIAL As Ordered ONE; -TRIAMCINOLONE ACETONIDE SUSP 40 MG/ML VIAL (J3301) As Ordered ONE
== END ==
LOC: M SFHCRHEU 13:19
PROVIDERS: ATTEND Internal Medicine Rheumatology
DX: M06.4 Inflammatory polyarthropathy (principal)

== ENCOUNTER → 2021-09-23 | Outpatient (REF) | payer OTHER, BC ==
[2021-09-23 12:16] LABS: INR 0.91; PROTHROMBIN TIME 12.6 SECONDS (12.7-14.5)
== END ==
LOC: M LAB REF 11:42
PROVIDERS: ATTEND Physician Assistant Medical
DX: R04.0 Epistaxis (principal)

== ENCOUNTER → 2021-09-25 | Outpatient (CLI) | payer OTHER, BC ==
[~2021-09-25] MED LIST changes: +ISOVUE-300 61% 50ML VIAL As Ordered ONE; +PROHANCE 279.3MG/ML 5ML VIAL As Ordered ONE
--- NOTE | 2021-09-25 10:03 | REP ---
INDICATION: RT SHOULDER PAIN. COMPARISON: None. TECHNIQUE: Pre contrast 3T MRI of the right shoulder with post glenohumeral joint injection MRI arthrogram utilizing various sequences. FINDINGS: The pre injection portion of the examination shows moderate hypertrophic degenerative change involving the acromioclavicular joint with T2 hyper signal within and on both sides of the AC joint. The acromion process is type 2. Mild patchy and linear T2 hyper signal is seen in the supraspinatus tendon without evidence of supraspinatus musculotendinous retraction or significant atrophy. Normal appearing low signal is seen throughout the subscapularis, infraspinatus, and teres minor tendons. The biceps tendon resides within the bicipital groove. There is no glenohumeral joint effusion. There is no evidence of abnormal coracohumeral or coracoacromial ligamentous thickening. There is no abnormal collection of fluid in the subcoracoid recess. Linear T2 hyper signal is seen in the base of the superior labrum anterior to posterior. Tiny T2 hyper signal foci are seen in the superolateral humeral head subjacent to the insertion of the supraspinatus tendon. The post injection portion examination shows persistent linear hyper signal in the superior labrum anterior to posterior. The glenohumeral ligaments are intact. None of the injected fluid has migrated superior to the supraspinatus tendon. IMPRESSION: 1. There is a SLAP tear with a concomitant slight tear in the biceps labral complex. 2. 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 3. Minimal early humeral head cystic degenerative changes. 4. Other findings as described above. <Electronically signed by Richard Ruiz > 09/25/21 0798
--- NOTE | 2021-09-25 17:30 | REP ---
INDICATION: RT SHOULDER PAIN. COMPARISON: None TECHNIQUE: The procedure was performed by WILI Whitaker, under the direct supervision of Dr. Barrera. The benefits and risks of the procedure were explained to the patient, and an informed consent was obtained. Directly prior to the start of the procedure, a formal time-out was completed in the procedure room. The right shoulder joint space was localized using fluoroscopic guidance. The skin was prepped and draped in a sterile fashion. Approximately 5 mL of 1% Lidocaine 10 mg/ml was used as a local anesthetic. Using fluoroscopic guidance, a #22 gauge spinal needle was inserted and advanced into the right shoulder joint space. Approximately 2 mL of Isovue 300 was injected to verify placement. Ten mL of a solution containing 20 mL of sterile saline and 0.15 mL of ProHance was injected into the joint space. The needle was removed and the patient was taken to MRI for post procedural imaging. FINDINGS: The patient tolerated the procedure well and there were no immediate complications. IMPRESSION: Technically successful right shoulder arthrogram. MRI imaging to follow. 0.1 minutes of fluoroscopy time was utilized for this procedure. Some fluoroscopic images are performed with last image hold technology. These images require no additional radiation. <Electronically signed by Bethanie Amador > 09/25/21 [id number] <Electronically signed by Kaiden Barrera > 09/25/21 [id number]
== END ==
LOC: M RADPRO 06:49
PROVIDERS: ATTEND Physician Assistant
DX: R93.7 Abnormal findings on diagnostic imaging of other parts of musculoskeletal system (principal); M65.811 Other synovitis and tenosynovitis, right shoulder
CPT/HCPCS: 23350; 73223; 77002; A9576; Q9967

== ENCOUNTER 2021-11-24 19:01 | Emergency (ER) | payer OTHER, BC ==
[~2021-11-24] VITALS: Ht 165.1 cm; Wt 85.9 kg
[~2021-11-24 19:01] MED LIST changes: -ISOVUE-300 61% 50ML VIAL As Ordered ONE; -PROHANCE 279.3MG/ML 5ML VIAL As Ordered ONE
[2021-11-24] MEDS ORDERED: VALA1TAB5 (19:17)
[2021-11-24] MEDS ORDERED: ONDANSETRON 4MG/2ML VIAL IV ONE (19:25)
[2021-11-24] MEDS ORDERED: NS 1,000 ML IV ONE (19:25)
[2021-11-24] MEDS ORDERED: KETOROLAC 30 MG/ML 1ML VIAL IV ONE (19:25)
[2021-11-24 20:15] LABS: ALBUMIN 3.5 GM/DL (3.2-5.2); ALT/SGPT 28 U/L (12-78); BILIRUBIN,DIRECT < 0.1 MG/DL (0.0-0.2); BILIRUBIN,TOTAL 0.2 MG/DL (0.2-1.0); LIPASE 44 U/L (73-393); TOTAL PROTEIN 6.6 GM/DL (6.4-8.2)
[2021-11-24 21:11] LABS: BASO % 0.3 % (0.0-1.0); EOS % 0.3 % (0.0-3.0); HEMATOCRIT 36.4 % (36.0-47.0); HEMOGLOBIN 12.3 g/dl (12.0-15.5); LYMPH # 1.2 10^3/uL (1.5-5.0); LYMPH % 13.3 % (24.0-44.0); MEAN CORPUSCULAR HEMOGLOBIN 33.8 pg (27.0-33.0); MEAN CORPUSCULAR HGB CONC 33.8 g/dl (32.0-36.5); MONO # 0.5 10^3/uL (0.0-0.8); MONO % 5.8 % (2.0-8.0); PLATELET COUNT, AUTOMATED 286 10^3/uL (150-450); RED BLOOD COUNT 3.64 10^6/uL (4.00-5.40); WHITE BLOOD COUNT 8.8 10^3/uL (4.0-10.0)
--- NOTE | 2021-11-24 23:16 | REPVR ---
PROCEDURE INFORMATION: Exam: CT Abdomen and Pelvis without Contrast Exam date and time: 11/24/21 (9:51pm) Age: 41 years old Clinical indication: RLQ pain. Possible stone disease. TECHNIQUE: Imaging protocol: Computed tomography of the abdomen and pelvis without contrast Radiation optimization: All CT scans at this facility use at least one of these dose optimization techniques: automated exposure control; mA and/or kV adjustment per patient size (includes targeted exams where dose is matched to clinical indication); or iterative reconstruction. COMPARISON: MRI PELVIS of 12/24/20 FINDINGS: Liver: Normal. No solid mass. Gallbladder and bile ducts: Normal. No calcified stones. No ductal dilatation. Pancreas: Normal. No ductal dilatation. Spleen: Normal. No splenomegaly. Adrenal glands: Normal. No mass. Kidneys and ureters: Evkl-[id number] right hydronephrosis. Small obstructing stone (2 mm size) in the proximal right ureter (2.5 cm below the right UP junction). No distal ureteral stones are seen. Stomach and bowel: Unremarkable. No bowel obstruction. No mucosal thickening. Appendix: A long normal appendix is visualized. Intraperitoneal space: Unremarkable. No free air. No significant fluid collection. Vasculature: Unremarkable. No abdominal aortic aneurysm. Lymph nodes: Unremarkable. No enlarged lymph nodes. Urinary bladder: Unremarkable as visualized. Reproductive: Unremarkable as visualized. Bones/joints: Unremarkable. No acute fracture. Soft tissues: Unremarkable. IMPRESSION: Hfar-[id number] right hydronephrosis. Small obstructing stone (2 mm size) in the proximal right ureter (2.5 cm below the right UP junction). No distal ureteral stones are seen. Electronically signed by: Gin López On 11/24/2021 23:15:46 PM
[2021-11-24] MEDS ORDERED: TAMSULOSIN 0.4 MG CAP PO ONE (23:30)
[2021-11-24] MEDS ORDERED: KETOROLAC TROMETHAMINE 10 MG TAB PO ONE (23:30)
[2021-11-24] MEDS ORDERED: ONDANSETRON 4 MG ORAL DISINTEGRATING TAB PO ONE (23:30)
[2021-11-24 23:31] VITALS: BP 117/86
[2021-11-24] MEDS ORDERED: FLOM0.4C39 PO (23:32)
[2021-11-24] MEDS ORDERED: ONDA4TAB6 PO (23:32)
[2021-11-24] MEDS ORDERED: KETO10TAB PO (23:32)
== END 2021-11-24 23:45 | disposition home or self-care (01) ==
LOC: EDBD 19:01 → M ED 19:01
DX: N20.1 Calculus of ureter (principal)
CPT/HCPCS: 74176; 80047; 80076; 81001; 83690; 85025; 93041; 96361; 96374; 99285; J1885; J2405; Q0162

== ENCOUNTER → 2022-05-14 | Outpatient (CLI) | payer OTHER, BC ==
[~2022-05-14] MED LIST changes: +FLOM0.4C39 PO; +ONDA4TAB6 PO; +VALA1TAB5
== END ==
LOC: M WHC 13:23
PROVIDERS: ATTEND Advanced Practice Midwife
DX: Z12.31 Encounter for screening mammogram for malignant neoplasm of breast (principal)

== ENCOUNTER → 2022-06-03 | Outpatient (CLI) | payer OTHER, BC ==
[2022-06-03 17:57] LABS: FREE T4 0.72 NG/DL (0.76-1.46); THYROID STIMULATING HORMONE 2.93 uIU/ML (0.358-3.740)
== END ==
LOC: M PLALAB 14:00
PROVIDERS: ATTEND Internal Medicine Endocrinology, Diabetes & Metabolism
DX: E03.8 Other specified hypothyroidism (principal)

== ENCOUNTER → 2022-12-12 | Outpatient (CLI) | payer OTHER, BC | LOC: M RAD 11:15 | PROVIDERS: ATTEND Internal Medicine | DX: N20.0 Calculus of kidney (principal) ==

== ENCOUNTER 2022-12-16 16:00 | Emergency (ER) | payer OTHER, BC ==
[~2022-12-16] VITALS: Ht 165.1 cm; Wt 88.2 kg
[~2022-12-16 16:00] MED LIST changes: -DOXE25CA; -ESTR1PAT23; -MIRA3350 PO; -NP T60TA; -SIME80CH6 PO
[2022-12-16] MEDS ORDERED: DOXE25CA (16:39)
[2022-12-16] MEDS ORDERED: ESTR1PAT23 (16:39)
[2022-12-16] MEDS ORDERED: NP T60TA (16:39)
[2022-12-16 17:54] LABS: BASO % 0.5 % (0.0-1.0); EOS # 0.1 10^3/uL (0.0-0.5); EOS % 2.3 % (0.0-3.0); HEMATOCRIT 40.7 % (36.0-47.0); HEMOGLOBIN 13.4 g/dl (12.0-15.5); LYMPH # 2.2 10^3/uL (1.5-5.0); LYMPH % 35.5 % (24.0-44.0); MEAN CORPUSCULAR HEMOGLOBIN 32.8 pg (27.0-33.0); MEAN CORPUSCULAR HGB CONC 32.9 g/dl (32.0-36.5); MEAN CORPUSCULAR VOLUME 99.5 fl (80.0-96.0); MONO # 0.5 10^3/uL (0.0-0.8); MONO % 8.7 % (2.0-8.0); NEUTROPHILS # 3.3 10^3/uL (1.5-8.5); NEUTROPHILS % 52.7 % (36.0-66.0); PLATELET COUNT, AUTOMATED 335 10^3/uL (150-450); RED BLOOD COUNT 4.09 10^6/uL (4.00-5.40); WHITE BLOOD COUNT 6.2 10^3/uL (4.0-10.0)
[2022-12-16 18:18] LABS: LIPASE 28 U/L (12-53)
[2022-12-16 18:20] LABS: BILIRUBIN,DIRECT 0.1 MG/DL (<0.4)
[2022-12-16 18:21] LABS: ALKALINE PHOSPHATASE 85 U/L (46-116); ALT/SGPT 50 U/L (7.0-40); AST/SGOT 33 U/L (<34); BILIRUBIN,TOTAL 0.5 MG/DL (0.3-1.2); BLOOD UREA NITROGEN 13 MG/DL (9-23); CALCIUM LEVEL 9.8 MG/DL (8.5-10.1); CARBON DIOXIDE LEVEL 27 MMOL/L (20-31); CHLORIDE LEVEL 105 MMOL/L (98-107); CREATININE FOR GFR 0.93 MG/DL (0.55-1.30); GLOMERULAR FILTRATION RATE > 60.0 (>58); GLUCOSE, FASTING 94 MG/DL (60-100); POTASSIUM SERUM 4.5 MMOL/L (3.5-5.1); SODIUM LEVEL 140 MMOL/L (136-145); TOTAL PROTEIN 7.3 G/DL (5.7-8.2)
[2022-12-16] MEDS ORDERED: ISOVUE-370 76% 100ML VIAL As Ordered ONE (21:35)
[2022-12-16] MEDS ORDERED: MIRA3350 PO (22:41)
[2022-12-16] MEDS ORDERED: SIME80CH6 PO (22:44)
[2022-12-16] MEDS ORDERED: SIMETHICONE 80MG CHEW TAB PO STA (22:44)
[2022-12-16 22:57] VITALS: BP 116/81
== END 2022-12-17 11:09 | disposition home or self-care (01) ==
LOC: M ED 16:00
DX: K59.00 Constipation, unspecified (principal); R14.1 Gas pain; Z87.442 Personal history of urinary calculi; R51.9 Headache, unspecified; E03.9 Hypothyroidism, unspecified; Z79.899 Other long term (current) drug therapy

== ENCOUNTER → 2022-12-16 | Outpatient (REF) | payer OTHER, BC ==
[~2022-12-16] MED LIST changes: +DOXE25CA; +ESTR1PAT23; +MIRA3350 PO; +NP T60TA; +SIME80CH6 PO
[2022-12-16 13:07] LABS: APPEARANCE, URINE MANUAL CLEAR (CLEAR); COLOR, URINE MANUAL YELLOW (YELLOW)
[2022-12-16 13:08] LABS: BILIRUBIN, URINE MANUAL NEGATIVE (NEGATIVE); BLOOD URINE MANUAL NEGATIVE (NEGATIVE); GLUCOSE, URINE (UA) MANUAL NEGATIVE (NEGATIVE); KETONE, URINE MANUAL NEGATIVE (NEGATIVE); LEUKOCYTE ESTERASE, URINE MAN NEGATIVE (NEGATIVE); NITRITE, URINE MANUAL NEGATIVE (NEGATIVE); PROTEIN, URINE MANUAL NEGATIVE (NEGATIVE); UROBILINOGEN, URINE MANUAL NORMAL (NORMAL)
== END ==
LOC: M SMT 12:44
PROVIDERS: ATTEND Physician Assistant
DX: N23 Unspecified renal colic (principal)

== ENCOUNTER → 2023-02-02 | Outpatient (REF) | payer OTHER, BC ==
[~2023-02-02] MED LIST changes: +DOXE25CA; +ESTR1PAT23; +MIRA3350 PO; +NP T60TA; +SIME80CH6 PO; +TOPI-254 PO; -TOPI50TA9 PO
[2023-02-02 18:09] LABS: BASO % 0.9 % (0.0-1.0); EOS # 0.1 10^3/uL (0.0-0.5); EOS % 2.1 % (0.0-3.0); HEMATOCRIT 41.1 % (36.0-47.0); HEMOGLOBIN 13.7 g/dl (12.0-15.5); LYMPH # 1.7 10^3/uL (1.5-5.0); MEAN CORPUSCULAR HEMOGLOBIN 33.5 pg (27.0-33.0); MEAN CORPUSCULAR HGB CONC 33.3 g/dl (32.0-36.5); MEAN CORPUSCULAR VOLUME 100.5 fl (80.0-96.0); MONO # 0.4 10^3/uL (0.0-0.8); MONO % 9.4 % (2.0-8.0); NEUTROPHILS # 2.1 10^3/uL (1.5-8.5); NEUTROPHILS % 48.4 % (36.0-66.0); PLATELET COUNT, AUTOMATED 317 10^3/uL (150-450); RED BLOOD COUNT 4.09 10^6/uL (4.00-5.40); WHITE BLOOD COUNT 4.3 10^3/uL (4.0-10.0)
[2023-02-02 18:19] LABS: ERYTHROCYTE SEDIMENTATION RATE 24 mm/hr (0-20)
[2023-02-02 18:34] LABS: C REACTIVE PROTEIN QUANTITATIV < 0.40 MG/DL (<1.0)
[2023-02-02 18:35] LABS: ALBUMIN 3.8 G/DL (3.2-5.2); ALKALINE PHOSPHATASE 92 U/L (46-116); ALT/SGPT 29 U/L (7.0-40); AST/SGOT 16 U/L (<34); BILIRUBIN,TOTAL 0.4 MG/DL (0.3-1.2); BLOOD UREA NITROGEN 13 MG/DL (9-23); CALCIUM LEVEL 9.1 MG/DL (8.5-10.1); CARBON DIOXIDE LEVEL 28 MMOL/L (20-31); CHLORIDE LEVEL 104 MMOL/L (98-107); CREATININE FOR GFR 0.95 MG/DL (0.55-1.30); GLOMERULAR FILTRATION RATE > 60.0 (>58); GLUCOSE, FASTING 83 MG/DL (60-100); POTASSIUM SERUM 4.3 MMOL/L (3.5-5.1); SODIUM LEVEL 139 MMOL/L (136-145); TOTAL PROTEIN 6.9 G/DL (5.7-8.2)
== END ==
LOC: M SFHCRHEU 11:46
PROVIDERS: ATTEND Internal Medicine Rheumatology
DX: M13.0 Polyarthritis, unspecified (principal); E06.3 Autoimmune thyroiditis; M51.36 Other intervertebral disc degeneration, lumbar region; R79.89 Other specified abnormal findings of blood chemistry

== ENCOUNTER → 2023-04-06 | Outpatient (CLI) | payer OTHER, BC ==
[2023-04-06 13:33] LABS: CALCIUM LEVEL 9.4 MG/DL (8.5-10.1); CREATININE FOR GFR 1.09 MG/DL (0.55-1.30); GLOMERULAR FILTRATION RATE 58.3 (>58); POTASSIUM SERUM 4.1 MMOL/L (3.5-5.1)
[2023-04-06 13:35] LABS: THYROID STIMULATING HORMONE 4.928 uIU/ML (0.55-4.78)
[2023-04-06 13:36] LABS: FREE T4 1.24 NG/DL (0.89-1.76)
[2023-04-06 13:46] LABS: HEMOGLOBIN A1c 5.2 % (4.0-6.0)
== END ==
LOC: M PLALAB 09:14
PROVIDERS: ATTEND Internal Medicine Endocrinology, Diabetes & Metabolism
DX: E66.09 Other obesity due to excess calories (principal); Z68.30 Body mass index [BMI] 30.0-30.9, adult; E03.8 Other specified hypothyroidism; E06.3 Autoimmune thyroiditis

== ENCOUNTER 2023-05-09 17:30 | Inpatient (IN) | payer OTHER, BC ==
[~2023-05-09] VITALS: Ht 165.1 cm; Wt 90.2 kg
[~2023-05-09 17:30] MED LIST changes: -DOXE25CA; +DOXE25CA PO; -VALA1TAB5
[2023-05-09] MEDS ORDERED: IBUP-1114 PO (17:51)
[2023-05-09] MEDS ORDERED: TRAM50TA2 PO (17:51)
[2023-05-09] MEDS ORDERED: CIPR250T3 PO (17:55)
[2023-05-09 18:27] LABS: BASO # 0.1 10^3/uL (0.0-0.2); BASO % 0.4 % (0.0-1.0); EOS % 0.3 % (0.0-3.0); HEMATOCRIT 39.2 % (36.0-47.0); HEMOGLOBIN 13.5 g/dl (12.0-15.5); LYMPH # 2.2 10^3/uL (1.5-5.0); LYMPH % 15.1 % (24.0-44.0); MEAN CORPUSCULAR HEMOGLOBIN 34.1 pg (27.0-33.0); MEAN CORPUSCULAR HGB CONC 34.4 g/dl (32.0-36.5); MONO # 0.7 10^3/uL (0.0-0.8); MONO % 5.2 % (2.0-8.0); NEUTROPHILS # 11.2 10^3/uL (1.5-8.5); NEUTROPHILS % 78.4 % (36.0-66.0); PLATELET COUNT, AUTOMATED 335 10^3/uL (150-450); RED BLOOD COUNT 3.96 10^6/uL (4.00-5.40); WHITE BLOOD COUNT 14.3 10^3/uL (4.0-10.0)
[2023-05-09 18:47] LABS: BILIRUBIN,DIRECT 0.1 MG/DL (<0.4); BILIRUBIN,TOTAL 0.5 MG/DL (0.3-1.2); TOTAL PROTEIN 6.9 G/DL (5.7-8.2)
[2023-05-09] MEDS ORDERED: HYDROMORPHONE HCL 0.5 MG/ 0.5 ML SYRINGE IV ONE (19:15)
[2023-05-09] MEDS ORDERED: ONDANSETRON 4MG 2ML VIAL IV ONE (20:00)
[2023-05-09] MEDS ORDERED: HYDROmorphone 2 MG TAB PO ONE ×2 (22:10→23:10)
[2023-05-09] MEDS ORDERED: NS 1,000 ML IV ONE (22:10)
[2023-05-09] MEDS ORDERED: PILL CUTTER 1 EACH XX ONE (22:16)
[2023-05-09] MEDS ORDERED: cefTRIAXone SOD 1 GM in D5W MINI-BAG PLUS 50 ML IV ONE (22:20)
[2023-05-09] MEDS ORDERED: ONDA-84 PO (23:09)
[2023-05-09] MEDS ORDERED: LIOT5TAB6 PO (23:09)
[2023-05-09] MEDS ORDERED: TAMS1CAP17 PO (23:09)
[2023-05-09] MEDS ORDERED: LEVO125T4 PO (23:09)
[2023-05-09] MEDS ORDERED: PILL CUTTER 1 EACH XX PRN (23:10)
[2023-05-09] MEDS ORDERED: HOME MED LIST COMPLETE! XX SCH (23:10)
[2023-05-10] VITALS (9 sets, daily range): BP systolic 100–123; BP diastolic 59–75; TEMP 97.2–97.9; O2SAT 93–99
[2023-05-10] MEDS: LR 1,000 ML IV SCH ×2 (00:41→07:55)
[2023-05-10] MEDS: MORPHINE 4 MG/ML 1ML VIAL IV PRN ×2 (00:43→03:16)
[2023-05-10] MEDS ORDERED: HYDROMORPHONE HCL 0.5 MG/ 0.5 ML SYRINGE IV ONE (06:00)
[2023-05-10] MEDS: TAMSULOSIN 0.4 MG CAP PO SCH ×2 (07:55→21:28)
[2023-05-10] MEDS: DULoxetine 30MG CAPSULE (CYMBALTA) PO SCH ×2 (07:57→21:28)
[2023-05-10] MEDS: CETIRIZINE (ZyrTEC) 10 MG TAB PO SCH ×2 (07:57→21:29)
[2023-05-10] MEDS: LEVOTHYROXINE 125MCG TABLET (0.125MG) PO SCH (07:58)
[2023-05-10] MEDS ORDERED: oxyCODONE 5MG TAB PO PRN (08:15)
[2023-05-10] MEDS ORDERED: ONDANSETRON 4MG 2ML VIAL IV PRN (08:15)
[2023-05-10] MEDS ORDERED: KETOROLAC 30 MG/ML 1ML VIAL IV ONE (08:30)
[2023-05-10] MEDS: TOPIRAMATE (TopAMAX) 25 MG TAB PO SCH ×2 (08:40→21:29)
[2023-05-10] MEDS: ENOXAPARIN 40MG/0.4ML SYRINGE (J1650 PER 10MG) SC SCH (08:41)
[2023-05-10] MEDS ORDERED: KETOROLAC 30 MG/ML 1ML VIAL IV PRN (11:00)
[2023-05-10] MEDS: SENOKOT S TAB PO SCH ×2 (14:21→21:29)
[2023-05-10] MEDS: ACETAMINOPHEN TAB 650MG DOSE (2X325MG) PO PRN ×2 (14:22→21:32)
[2023-05-10] MEDS ORDERED: DOXEPIN 25 MG CAP PO SCH (21:00)
[2023-05-10] MEDS ORDERED: cefTRIAXone SOD 1 GM in D5W MINI-BAG PLUS 50 ML IV SCH (22:00)
[2023-05-11] VITALS (9 sets, daily range): BP systolic 101–108; BP diastolic 55–64; TEMP 96.6–97; O2SAT 91–98
[2023-05-11 05:34] LABS: HEMATOCRIT 36.4 % (36.0-47.0); HEMOGLOBIN 12.3 g/dl (12.0-15.5); MEAN CORPUSCULAR HEMOGLOBIN 33.8 pg (27.0-33.0); MEAN CORPUSCULAR HGB CONC 33.8 g/dl (32.0-36.5); PLATELET COUNT, AUTOMATED 271 10^3/uL (150-450); RED BLOOD COUNT 3.64 10^6/uL (4.00-5.40); WHITE BLOOD COUNT 5.9 10^3/uL (4.0-10.0)
[2023-05-11 05:56] LABS: CREATININE FOR GFR 1.21 MG/DL (0.55-1.30); GLOMERULAR FILTRATION RATE 51.7 (>58)
[2023-05-11] MEDS: LEVOTHYROXINE 125MCG TABLET (0.125MG) PO SCH (06:05)
[2023-05-11] MEDS: SENOKOT S TAB PO SCH (08:35)
[2023-05-11] MEDS: ENOXAPARIN 40MG/0.4ML SYRINGE (J1650 PER 10MG) SC SCH (08:36)
== END 2023-05-11 09:46 | disposition home or self-care (01) | DRG 694 ==
LOC: M ED 17:30 → M ED INP 05-10 00:08 → M PCU 05-10 06:42
PROVIDERS: ADMIT Internal Medicine; ATTEND Internal Medicine Nephrology
DX: N13.2 Hydronephrosis with renal and ureteral calculous obstruction (principal); E03.9 Hypothyroidism, unspecified; K21.9 Gastro-esophageal reflux disease without esophagitis; G43.909 Migraine, unspecified, not intractable, without status migrainosus; E06.3 Autoimmune thyroiditis; G47.33 Obstructive sleep apnea (adult) (pediatric); F32.A Depression, unspecified; F41.9 Anxiety disorder, unspecified; M15.9 Polyosteoarthritis, unspecified; E66.9 Obesity, unspecified; Z79.890 Hormone replacement therapy; Z79.899 Other long term (current) drug therapy; Z68.33 Body mass index [BMI] 33.0-33.9, adult

== ENCOUNTER → 2023-09-16 | Outpatient (REF) | payer OTHER, BC ==
[~2023-09-16] MED LIST changes: +CIPR250T3 PO; +IBUP-1114 PO; +LEVO125T4 PO; +LIOT5TAB6 PO; +ONDA-84 PO; +TAMS1CAP17 PO; +TRAM50TA2 PO
== END ==
LOC: M SFHCWAGY 17:36
PROVIDERS: ATTEND Advanced Practice Midwife
DX: Z12.72 Encounter for screening for malignant neoplasm of vagina (principal)
CPT/HCPCS: 87624; G0123

== ENCOUNTER → 2023-09-16 | Outpatient (CLI) | payer OTHER, BC | LOC: M WHC 14:22 | PROVIDERS: ATTEND Advanced Practice Midwife | DX: Z12.31 Encounter for screening mammogram for malignant neoplasm of breast (principal) ==

== ENCOUNTER → 2023-09-28 | Outpatient (REF) | payer OTHER, BC | LOC: M LAB REF 16:25 | PROVIDERS: ATTEND Nurse Practitioner Adult Health | DX: A49.01 Methicillin susceptible Staphylococcus aureus infection, unspecified site (principal) ==

== ENCOUNTER → 2023-11-24 | Outpatient (CLI) | payer OTHER, BC ==
[~2023-11-24] MED LIST changes: +TOPI-21 PO; -TOPI-254 PO
== END ==
LOC: M PLAIMG 15:35
PROVIDERS: ATTEND Internal Medicine Rheumatology
DX: M13.0 Polyarthritis, unspecified (principal); M51.36 Other intervertebral disc degeneration, lumbar region; R79.89 Other specified abnormal findings of blood chemistry; E06.3 Autoimmune thyroiditis

== ENCOUNTER → 2023-11-24 | Outpatient (CLI) | payer OTHER, BC | LOC: M PLAIMG 15:32 | PROVIDERS: ATTEND Nurse Practitioner Family | DX: L92.9 Granulomatous disorder of the skin and subcutaneous tissue, unspecified (principal) ==

== ENCOUNTER → 2023-11-26 | Outpatient (REF) | payer OTHER, BC ==
[2023-11-26 11:57] LABS: BASO % 0.6 % (0.0-1.0); EOS # 0.1 10^3/uL (0.0-0.5); EOS % 2.1 % (0.0-3.0); HEMATOCRIT 41.4 % (36.0-47.0); HEMOGLOBIN 13.9 g/dl (12.0-15.5); LYMPH # 1.6 10^3/uL (1.5-5.0); LYMPH % 32.6 % (24.0-44.0); MEAN CORPUSCULAR HGB CONC 33.6 g/dl (32.0-36.5); MEAN CORPUSCULAR VOLUME 101.2 fl (80.0-96.0); MONO # 0.4 10^3/uL (0.0-0.8); MONO % 7.3 % (2.0-8.0); NEUTROPHILS # 2.8 10^3/uL (1.5-8.5); NEUTROPHILS % 57.2 % (36.0-66.0); PLATELET COUNT, AUTOMATED 344 10^3/uL (150-450); RED BLOOD COUNT 4.09 10^6/uL (4.00-5.40); WHITE BLOOD COUNT 4.8 10^3/uL (4.0-10.0)
[2023-11-26 12:25] LABS: C REACTIVE PROTEIN QUANTITATIV < 0.40 MG/DL (<1.0)
[2023-11-26 12:26] LABS: TOTAL 25(OH) VITAMIN D 28.7 NG/ML (20.0-100.0)
[2023-11-26 12:27] LABS: ALBUMIN 3.9 G/DL (3.2-5.2); ALKALINE PHOSPHATASE 93 U/L (46-116); ALT/SGPT 40 U/L (7.0-40); AST/SGOT 24 U/L (<34); BILIRUBIN,TOTAL 0.4 MG/DL (0.3-1.2); BLOOD UREA NITROGEN 21 MG/DL (9-23); CARBON DIOXIDE LEVEL 26 MMOL/L (20-31); CHLORIDE LEVEL 110 MMOL/L (98-107); CREATININE FOR GFR 0.93 MG/DL (0.55-1.30); GLOMERULAR FILTRATION RATE > 60.0 (>58); GLUCOSE, FASTING 89 MG/DL (60-100); POTASSIUM SERUM 3.9 MMOL/L (3.5-5.1); SODIUM LEVEL 144 MMOL/L (136-145); TOTAL PROTEIN 7.1 G/DL (5.7-8.2)
[2023-11-26 12:33] LABS: ERYTHROCYTE SEDIMENTATION RATE 24 mm/hr (0-20)
== END ==
LOC: M SFHCRHEU 10:40
PROVIDERS: ATTEND Internal Medicine Rheumatology
DX: M13.0 Polyarthritis, unspecified (principal); E06.3 Autoimmune thyroiditis; M51.36 Other intervertebral disc degeneration, lumbar region; R79.89 Other specified abnormal findings of blood chemistry

== ENCOUNTER 2023-12-15 10:39 | Day surgery (SDC) | payer BC, OTHER ==
[~2023-12-15] VITALS: Ht 165.1 cm; Wt 90.6 kg
[~2023-12-15 10:39] MED LIST changes: +MELA5CAP2 PO; +NS 1,000 ML IV ONE; +TIRZ2.5P SQ
[2023-12-15] MEDS ORDERED: propofoL 500 MG/50 ML VIAL As Ordered ONE (11:04)
[2023-12-15] MEDS ORDERED: LIDOCAINE 2% 100MG/5ML SDV (FOR ANES.) As Ordered ONE (11:04)
[2023-12-15] MEDS ORDERED: fentaNYL 100 MCG/2 ML INJECTION As Ordered ONE (11:04)
[2023-12-15] MEDS ORDERED: ONDANSETRON 4MG 2ML VIAL As Ordered ONE (13:57)
[2023-12-15 14:01] VITALS: BP 116/69; TEMP 97.2; O2SAT 98
== END 2023-12-15 14:21 | disposition home or self-care (01) ==
LOC: M OPP 10:39
PROVIDERS: ATTEND Internal Medicine Gastroenterology
DX: K64.4 Residual hemorrhoidal skin tags (principal); K64.8 Other hemorrhoids; Q43.8 Other specified congenital malformations of intestine; K59.00 Constipation, unspecified; K92.1 Melena; K31.89 Other diseases of stomach and duodenum; R13.10 Dysphagia, unspecified; F17.200 Nicotine dependence, unspecified, uncomplicated; Z79.84 Long term (current) use of oral hypoglycemic drugs; Z79.890 Hormone replacement therapy; Z79.899 Other long term (current) drug therapy; Z91.018 Allergy to other foods
CPT/HCPCS: 43239; 45378; 88305; J0665; J3010

== ENCOUNTER → 2024-01-14 | Outpatient (CLI) | payer OTHER, BC ==
[~2024-01-14] MED LIST changes: -NS 1,000 ML IV ONE
== END ==
LOC: M RAD 12:59
PROVIDERS: ATTEND Nurse Practitioner Adult Health
DX: R13.10 Dysphagia, unspecified (principal)

== ENCOUNTER → 2024-02-11 | Outpatient (CLI) | payer OTHER ==
[~2024-02-11] MED LIST changes: +BARIUM SULFATE 700 MG TABLET (E-Z-DISK) As Ordered ONE; +E-Z-PAQUE 96% w/w SUSP 176GM BTL As Ordered ONE; +VARIBAR NECTAR 40% w/v 240ML SUSP BTL As Ordered ONE; +VARIBAR PUDDING 40% w/v 230ML TUBE As Ordered ONE
== END ==
LOC: M RAD 11:03
PROVIDERS: ATTEND Nurse Practitioner Family
DX: R13.10 Dysphagia, unspecified (principal)

== ENCOUNTER → 2024-02-25 | Outpatient (REF) | payer OTHER, BC ==
[~2024-02-25] MED LIST changes: -BARIUM SULFATE 700 MG TABLET (E-Z-DISK) As Ordered ONE; -E-Z-PAQUE 96% w/w SUSP 176GM BTL As Ordered ONE; -VARIBAR NECTAR 40% w/v 240ML SUSP BTL As Ordered ONE; -VARIBAR PUDDING 40% w/v 230ML TUBE As Ordered ONE
[2024-02-25 18:12] LABS: BASO % 0.7 % (0.0-1.0); EOS # 0.1 10^3/uL (0.0-0.5); EOS % 1.4 % (0.0-3.0); HEMATOCRIT 42.9 % (36.0-47.0); HEMOGLOBIN 14.6 g/dl (12.0-15.5); LYMPH # 2.1 10^3/uL (1.5-5.0); LYMPH % 37.4 % (24.0-44.0); MEAN CORPUSCULAR HEMOGLOBIN 34.3 pg (27.0-33.0); MEAN CORPUSCULAR VOLUME 100.7 fl (80.0-96.0); MONO # 0.4 10^3/uL (0.0-0.8); NEUTROPHILS % 53.3 % (36.0-66.0); PLATELET COUNT, AUTOMATED 335 10^3/uL (150-450); RED BLOOD COUNT 4.26 10^6/uL (4.00-5.40); WHITE BLOOD COUNT 5.5 10^3/uL (4.0-10.0)
[2024-02-25 18:35] LABS: ALBUMIN 4.1 G/DL (3.2-5.2); ALKALINE PHOSPHATASE 97 U/L (46-116); ALT/SGPT 43 U/L (7.0-40); AST/SGOT 18 U/L (<34); BILIRUBIN,DIRECT < 0.1 MG/DL (<0.4); BILIRUBIN,TOTAL 0.3 MG/DL (0.3-1.2); CALCIUM LEVEL 9.5 MG/DL (8.5-10.1); CREATININE FOR GFR 0.88 MG/DL (0.55-1.30); GLOMERULAR FILTRATION RATE > 60.0 (>58); TOTAL PROTEIN 7.3 G/DL (5.7-8.2)
== END ==
LOC: M LAB REF 17:19
PROVIDERS: ATTEND Internal Medicine Pulmonary Disease
DX: D86.9 Sarcoidosis, unspecified (principal)

== ENCOUNTER → 2024-03-24 | Outpatient (CLI) | payer OTHER, BC | LOC: M PLAIMG 10:35 | PROVIDERS: ATTEND Internal Medicine Pulmonary Disease | DX: D86.9 Sarcoidosis, unspecified (principal) ==

== ENCOUNTER → 2024-06-07 | Outpatient (CLI) | payer OTHER, BC ==
[~2024-06-07] MED LIST changes: +METHACHOLINE KIT (6 VIAL.NEB PREMIX) INH ONE; +ONDA-282 PO; -ONDA4TAB6 PO
== END ==
LOC: M CARPUL 12:33
PROVIDERS: ATTEND Internal Medicine Pulmonary Disease
DX: R05.9 Cough, unspecified (principal)

== ENCOUNTER 2024-06-21 12:35 | Emergency (ER) | payer OTHER, BC ==
[~2024-06-21] VITALS: Ht 165.1 cm; Wt 89.0 kg
[~2024-06-21 12:35] MED LIST changes: -METHACHOLINE KIT (6 VIAL.NEB PREMIX) INH ONE
[2024-06-21 13:42] LABS: BASO % 0.3 % (0.0-1.0); EOS # 0.1 10^3/uL (0.0-0.5); HEMATOCRIT 41.9 % (36.0-47.0); HEMOGLOBIN 14.5 g/dl (12.0-15.5); LYMPH # 2.1 10^3/uL (1.5-5.0); LYMPH % 30.4 % (24.0-44.0); MEAN CORPUSCULAR HEMOGLOBIN 33.9 pg (27.0-33.0); MEAN CORPUSCULAR HGB CONC 34.6 g/dl (32.0-36.5); MEAN CORPUSCULAR VOLUME 97.9 fl (80.0-96.0); MONO # 0.5 10^3/uL (0.0-0.8); NEUTROPHILS # 4.1 10^3/uL (1.5-8.5); NEUTROPHILS % 59.7 % (36.0-66.0); PLATELET COUNT, AUTOMATED 335 10^3/uL (150-450); RED BLOOD COUNT 4.28 10^6/uL (4.00-5.40); WHITE BLOOD COUNT 6.9 10^3/uL (4.0-10.0)
[2024-06-21 13:53] LABS: PROTHROMBIN TIME 12.9 SECONDS (12.5-14.5)
[2024-06-21 14:07] LABS: CK-MB VALUE MASS < 1.0 NG/ML (<3.6); LIPASE 30 U/L (12-53)
[2024-06-21 14:10] LABS: ALBUMIN 3.9 G/DL (3.2-5.2); ALKALINE PHOSPHATASE 96 U/L (46-116); ALT/SGPT 36 U/L (7.0-40); AST/SGOT 11 U/L (<34); BILIRUBIN,DIRECT < 0.1 MG/DL (<0.4); BILIRUBIN,TOTAL 0.3 MG/DL (0.3-1.2); BLOOD UREA NITROGEN 16 MG/DL (9-23); CALCIUM LEVEL 9.3 MG/DL (8.5-10.1); CARBON DIOXIDE LEVEL 25 MMOL/L (20-31); CHLORIDE LEVEL 109 MMOL/L (98-107); CREATININE FOR GFR 0.86 MG/DL (0.55-1.30); GLOMERULAR FILTRATION RATE > 60.0 (>58); GLUCOSE, FASTING 104 MG/DL (60-100); POTASSIUM SERUM 3.8 MMOL/L (3.5-5.1); SODIUM LEVEL 140 MMOL/L (136-145)
[2024-06-21 14:14] LABS: CPK CREATINE PHOSPHOKINASE 48 U/L (34-145); MB/CK RELATIVE INDEX 2.08 (< OR =4)
[2024-06-21] MEDS: METOCLOPRAMIDE INJ 10MG/2ML VIAL IV ONE (17:15)
[2024-06-21] MEDS: NS 1,000 ML IV ONE (17:15)
[2024-06-21] MEDS: diphenhydrAMINE 50MG/ML VIAL IV ONE (17:18)
[2024-06-21] MEDS: dexAMETHasone 20MG/5ML VIAL IV ONE (17:20)
[2024-06-21 18:08] LABS: CK-MB VALUE MASS < 1.0 NG/ML (<3.6)
[2024-06-21 18:09] LABS: CPK CREATINE PHOSPHOKINASE 42 U/L (34-145); MB/CK RELATIVE INDEX 2.38 (< OR =4)
[2024-06-21 20:44] VITALS: TEMP 97.2
[2024-06-21 23:37] VITALS: BP 125/58; O2SAT 95
== END 2024-06-21 23:40 | disposition home or self-care (01) ==
LOC: M ED 12:35
DX: R07.89 Other chest pain (principal); R20.2 Paresthesia of skin; R00.0 Tachycardia, unspecified; G43.909 Migraine, unspecified, not intractable, without status migrainosus; D86.9 Sarcoidosis, unspecified; E06.3 Autoimmune thyroiditis; F17.210 Nicotine dependence, cigarettes, uncomplicated; F10.10 Alcohol abuse, uncomplicated; Z91.012 Allergy to eggs; Z91.018 Allergy to other foods; Z79.899 Other long term (current) drug therapy
CPT/HCPCS: 70450; 70544; 70547; 70551; 71045; 80048; 80076; 82550; 82553; 83690; 84484; 85025; 85379; 85610; 93005; 96361; 96374; 96375; 99285; J1100; J1200; J2765

== ENCOUNTER → 2024-10-12 | Outpatient (CLI) | payer OTHER | LOC: M RAD 09:13 | PROVIDERS: ATTEND Internal Medicine Pulmonary Disease | DX: R91.1 Solitary pulmonary nodule (principal) ==

== ENCOUNTER → 2025-02-21 | Outpatient (CLI) | payer OTHER | LOC: M WUC 12:35 | PROVIDERS: ATTEND Physician Assistant | DX: M54.50 Low back pain, unspecified (principal); M54.32 Sciatica, left side ==

== ENCOUNTER → 2025-08-30 | Outpatient (CLI) | payer OTHER, BC ==
[~2025-08-30] MED LIST changes: -FLOM0.4C39 PO; -IBUP-1022 PO; +IBUP600T42 PO; +TAMS-18 PO
== END ==
LOC: M PLAIMG 10:02
PROVIDERS: ATTEND Internal Medicine Pulmonary Disease
DX: D86.1 Sarcoidosis of lymph nodes (principal); R91.8 Other nonspecific abnormal finding of lung field; R59.0 Localized enlarged lymph nodes